=== PATIENT | male | born 1960 | race Caucasian/White ===

== ENCOUNTER 2018-09-09 19:46 | Emergency (ER) | payer MEDICARE ==
[~2018-09-09] VITALS: Ht 180.3 cm; Wt 117.9 kg
[2018-09-09 20:53] LABS: BASO # 0.1 x10^3/uL (0.0-0.2); BASO % 1 % (0-3); EOS # 0.1 x10^3/uL (0.0-0.7); EOS % 1 % (0-3); HEMATOCRIT 45.1 % (39.0-53.0); HEMOGLOBIN 15.8 g/dL (13.0-17.5); LYMPH # 3.1 x10^3/uL (1.0-4.8); LYMPH % 36 % (24-48); MEAN CORPUSCULAR HEMOGLOBIN 34 pg (25-35); MEAN CORPUSCULAR HGB CONC 35 g/dL (31-37); MEAN CORPUSCULAR VOLUME 98 fL (79-100); MONO # 0.7 x10^3/uL (0.0-1.1); MONO % 8 % (0-9); NEUT # 4.8 x10^3uL (1.8-7.7); NEUT % 55 % (31-73); PLATELET COUNT 260 x10^3/uL (140-400); RED BLOOD COUNT 4.63 x10^6/uL (4.30-5.70); RED CELL DISTRIBUTION WIDTH 13.5 % (11.5-14.5); WHITE BLOOD COUNT 8.7 x10^3/uL (4.0-11.0)
[2018-09-09 21:04] LABS: CALCIUM 9.9 mg/dL (8.5-10.1); CREATININE 1.2 mg/dL (0.7-1.3); GFR 62.4; POTASSIUM 3.7 mmol/L (3.5-5.1)
[2018-09-09 21:10] LABS: ALBUMIN 4.2 g/dL (3.4-5.0); ALBUMIN/GLOBULIN RATIO 1.1 (1.0-1.7); TOTAL BILIRUBIN 0.5 mg/dL (0.2-1.0); TOTAL PROTEIN 8.1 g/dL (6.4-8.2)
--- NOTE | 2018-09-09 21:19 | RAD ---
PQRS Compliance statement: One or more of the following individualized dose reduction techniques were utilized for this examination: 1. Automated exposure control. 2. Adjustment of the mA and/or kV according to patient size. 3. Use of iterative reconstruction technique. Indication:altered mental status TECHNIQUE: CT head without IV contrast COMPARISON:None FINDINGS: Left frontal subdural CSF attenuating fluid collection is seen measuring 2.0 cm in thickness with mass effect on the underlying brain parenchyma." Midline shift measuring 1 cm. No acute intracranial bleed. The ventricles and basal cisterns are within normal limits. Small area of low-attenuation along the inferior aspect of the right frontal lobe (series 4 image 9) is. Otherwise no focal loss of suarez-white differentiation. Visualized orbits are within normal limits. No large scalp hematoma. No suspicious bony lesion. The visualized paranasal sinuses and mastoid air cells are clear. IMPRESSION: 1. Left frontoparietal chronic subdural hematoma with rightward subfalcine herniation measuring 1 cm. 2. Small area of low attenuation along the inferior aspect of the right frontal lobe likely infarct or encephalomalacia from prior trauma, age indeterminate. Critical findings were identified on 09/09/2018 9:08 PM, read back and verified with JARED Rolle on 09/09/2018 9:[address] Carrillo Gilliland DO. Electronically signed by: Carrillo Gilliland DO (09/09/2018 9:14 PM) [facility]
[2018-09-09 22:00] VITALS: BP 135/81
--- NOTE | 2018-09-09 22:01 | RAD ---
PORTABLE CHEST 1V History: Short of breath. Comparison: None. Cardiomediastinal silhouette: Mildly widened, may be due to portable technique. Lungs: Prominent interstitial opacities, at least partially due to the low lung volumes. No dense lobar consolidation. Pleura: No evidence of pleural effusion. Pneumothorax: None visualized Support Devices: None. Impression: Mild interstitial prominence, may be due to low lung volumes. Mild interstitial edema or pneumonia is possible however. Electronically signed by: Vasquez Funk MD (09/09/2018 9:57 PM) [facility]
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
--- NOTE | 2018-09-09 22:36 | RAD ---
Indication:foot pain over metatarsal region TECHNIQUE: 3 views of the right foot COMPARISON:None FINDINGS/ impression: No acute fracture or dislocation. Mild soft tissue swelling of the dorsum of the distal foot. 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 No soft tissue emphysema. Electronically signed by: Carrillo Gilliland DO (09/09/2018 10:32 PM) [facility]
--- NOTE | 2018-09-10 15:01 | EKG ---
[facility] [address] [place] [address] Test Date: 2018-09-09 Test Time: 20:28:51 Pat Name: KELLY DELONG Department: Room: Gender: M [employer]: : 1960 Requested By: YOSI MEDLEY Order Number: [id number] Reading MD: Measurements Intervals Hope Rate: 96 P: 8 WI: 156 QRS: -21 QRSD: 74 T: 23 QT: 320 QTc: 405 Interpretive Statements SINUS RHYTHM LEFT ATRIAL ABNORMALITY LEFTWARD AXIS CONSIDER RIGHT VENTRICULAR HYPERTROPHY ABNORMAL ECG RI6.01 No previous ECG available for comparison
== END 2018-09-09 22:28 | disposition home or self-care (01) ==
LOC: ER 19:46
DX: M79.671 Pain in right foot (principal); R41.82 Altered mental status, unspecified
CPT/HCPCS: 36415; 70450; 71045; 73630; 80053; 82553; 83605; 83880; 84484; 85025; 93005; 96374; 99284; J2060